=== PATIENT | female | born 1940 | race Caucasian/White ===

== ENCOUNTER 2018-10-27 12:07 | Inpatient (IN) | payer MEDICARE, OTHER | END 2018-10-28 18:00 | disposition home or self-care (01) | LOC: ER 12:07 → ORTHO 4S 17:54 | PROC: 0PSJ04Z Reposition Left Radius with Internal Fixation Device, Open Approach (ICD-10-PCS; principal; 2018-10-27 15:18) | PROC: 0PSL04Z Reposition Left Ulna with Internal Fixation Device, Open Approach (ICD-10-PCS; 2018-10-27 15:18) | PROC: 0X990ZZ Drainage of Left Upper Arm, Open Approach (ICD-10-PCS; 2018-10-27 15:18) | DX: S52.002B Unspecified fracture of upper end of left ulna, initial encounter for open fracture type I or II (principal); S52.102B Unspecified fracture of upper end of left radius, initial encounter for open fracture type I or II; S00.83XA Contusion of other part of head, initial encounter; D72.829 Elevated white blood cell count, unspecified ==